=== PATIENT | male | born 1955 | race African-American/Black ===

== ENCOUNTER 2020-04-23 10:10 | Emergency (ER) | payer MEDICAID ==
[~2020-04-23] VITALS: Ht 182.9 cm; Wt 112.0 kg
[2020-04-23 10:16] VITALS: BP 151/97
[2020-04-23] MEDS ORDERED: LIDOCAINE HCL 1% 20ML VIAL (Pyxis) INJ INFIL ONE (10:45)
[2020-04-23] MEDS ORDERED: TETANUS, DIPHTHERIA, PERTUSSIS VAC/PF 0.5ML (>7YR OLD) IM ONE (10:45)
== END 2020-04-23 12:15 | disposition home or self-care (01) ==
LOC: ER 10:10
DX: S61.012A Laceration without foreign body of left thumb without damage to nail, initial encounter (principal); W22.8XXA Striking against or struck by other objects, initial encounter; Y93.89 Activity, other specified; Y92.89 Other specified places as the place of occurrence of the external cause; Y99.8 Other external cause status; E11.9 Type 2 diabetes mellitus without complications; I10 Essential (primary) hypertension; Z88.6 Allergy status to analgesic agent
CPT/HCPCS: 12001; 90471; 90715; 99283; J3490; Z7610

== ENCOUNTER 2020-04-25 13:04 | Emergency (ER) | payer MEDICAID ==
[~2020-04-25] VITALS: Ht 182.9 cm; Wt 111.0 kg
[2020-04-25 13:34] VITALS: BP 142/84
== END 2020-04-25 13:40 | disposition home or self-care (01) ==
LOC: ER 13:04
DX: S61.012D Laceration without foreign body of left thumb without damage to nail, subsequent encounter (principal); E11.9 Type 2 diabetes mellitus without complications; I10 Essential (primary) hypertension; Z48.00 Encounter for change or removal of nonsurgical wound dressing; Z91.040 Latex allergy status; Z88.6 Allergy status to analgesic agent; X58.XXXD Exposure to other specified factors, subsequent encounter
CPT/HCPCS: 99281

== ENCOUNTER 2020-05-03 09:08 | Emergency (ER) | payer MEDICAID ==
[~2020-05-03] VITALS: Ht 182.9 cm; Wt 107.7 kg
[2020-05-03 09:26] VITALS: BP 129/84
== END 2020-05-03 10:19 | disposition home or self-care (01) ==
LOC: ER 09:37
DX: Z48.02 Encounter for removal of sutures (principal)
CPT/HCPCS: 99281

== ENCOUNTER 2023-02-02 13:38 | Emergency (ER) | payer MEDICAID ==
[~2023-02-02] VITALS: Ht 182.9 cm; Wt 107.0 kg
[2023-02-02 13:54] VITALS: BP 135/75; TEMP 98.5; O2SAT 100
[2023-02-02 13:56] VITALS: PULSE 80; RESP 18
[2023-02-02] MEDS ORDERED: CEPH500C2 MT (14:28)
== END 2023-02-02 14:45 | disposition home or self-care (01) ==
LOC: ER 14:15
DX: T25.221A Burn of second degree of right foot, initial encounter (principal); T31.0 Burns involving less than 10% of body surface; J45.909 Unspecified asthma, uncomplicated; E11.9 Type 2 diabetes mellitus without complications; I10 Essential (primary) hypertension; X11.8XXA Contact with other hot tap-water, initial encounter; Y93.89 Activity, other specified; Y92.89 Other specified places as the place of occurrence of the external cause; Y99.8 Other external cause status
CPT/HCPCS: 99283